=== PATIENT | female | born 1980 | race Caucasian/White ===

== ENCOUNTER 2021-04-09 14:32 | Emergency (ER) | payer OTHER ==
[~2021-04-09 14:32] MED LIST: ACETAMINOPHEN500 M1 PO; DAILY MULTIPLE1 EAC1 PO; MOTRIN600 MG PO; MUCINEX 600MG600 MG PO; OXY-IR 5MG5 MG PO; VENTOLIN HFA IN18 GM INH
[2021-04-09 15:17] LABS: EOSINOPHIL 3.2 % (0-5); HCT 42.5 % (37.0-47.0); HGB 13.7 g/dl (12.5-16.0); LYMPHOCYTE 28.1 % (15-48); MCH 28.4 pg (25.0-31.0); MCHC 32.2 g/dL (32.0-36.0); MONOCYTE 7.9 % (0-12); MPV 10.2 fL (6.0-9.5); NEUTROPHIL 59.4 % (41-80); NRBC 0; PLT 274 K/uL (150-400); RBC 4.83 M/uL (4.20-5.40); RDW 14.8 % (11.5-14.0); WBC 8.1 K/uL (4.0-10.5)
[2021-04-09 15:37] LABS: ALBUMIN 3.7 g/dL (3.4-5.0); BILIRUBIN - TOTAL 0.3 mg/dL (0.2-1.0); BUN/CREAT RATIO (CALC) 7.6 RATIO; CREATININE 0.66 mg/dL (0.51-0.95); GLOBULIN (CALCULATION) 3.5 g/dL; POTASSIUM 3.9 mmol/L (3.5-5.1); TOTAL PROTEIN 7.2 g/dL (6.4-8.2)
[2021-04-09] MEDS ORDERED: PRENATAL FORMU1 EACH PO (17:55)
== END 2021-04-09 18:15 | disposition home or self-care (01) ==
LOC: FER 14:32
PROVIDERS: Internal Medicine
DX: O99.891 Other specified diseases and conditions complicating pregnancy (principal); R10.31 Right lower quadrant pain; O34.81 Maternal care for other abnormalities of pelvic organs, first trimester; N80.1 Endometriosis of ovary; Z3A.01 Less than 8 weeks gestation of pregnancy; Z90.49 Acquired absence of other specified parts of digestive tract
CPT/HCPCS: 36415; 76817; 80053; 82150; 83690; 84702; 85025